=== PATIENT | male | born 1975 | race Caucasian/White ===

== ENCOUNTER 2022-06-27 09:11 | Day surgery (SDC) | payer OTHER ==
[2022-06-27] MEDS ORDERED: CEFAZOLIN SODIUM 1 GM/VIAL ONE (09:45)
[2022-06-27] MEDS ORDERED: Ringers Lactate 1,000 ML IV ONE (09:45)
[2022-06-27] MEDS ORDERED: propofoL 200 MG/20 ML VIAL IV ONE (10:03)
[2022-06-27] MEDS ORDERED: MIDAZOLAM HCL 2 MG/2 ML INJ ONE (10:03)
[2022-06-27] MEDS ORDERED: FENTANYL CITR 100 MCG/2 ML ONE (10:03)
[2022-06-27] MEDS ORDERED: LIDOCAINE 2% MPF 5 ML VIAL ONE (10:04)
[2022-06-27] MEDS ORDERED: ONDANSETRON 4 MG/2 ML VIAL ONE (10:04)
[2022-06-27] MEDS ORDERED: HYDROMORPHONE HCL 1 MG/ML INJ ONE (11:51)
[2022-06-27 11:55] VITALS: O2SAT 98
[2022-06-27] MEDS ORDERED: HYDROCODONE/APAP 10/325 TAB ONE (12:35)
[2022-06-27 12:43] VITALS: BP 102/88; TEMP 97.2
--- NOTE | 2022-06-27 16:16 | OP ---
Surgeon: Fran Garcia MD Preoperative Diagnosis: Extensor pollicis longus laceration of the left thumb. Postoperative Diagnosis: Extensor pollicis longus laceration of the left thumb. Procedure Performed: Debridement of skin, subcutaneous tissue, simple closure of 2 cm wound, extenso r pollicis longus repair and splint. Anesthesia: General. Description Of Procedure: After satisfactory induction of general anesthesia, left hand was prepped with Betadine scrub, Betadine paint, dry sterile drapes applied in usual manner. The arm was elevate d and exsanguinated with an Esmarch. Tourniquet was inflated to 250 mmHg. Hand was placed on the ro ll lock table. Skin and subcutaneous tissues were debrided with a scalpel about 2 mm and proximal ex tensions were made, dissected out and lacerated extensor tendon was identified and then jet lavaged, irrigated with about 2 L of dilute Betadine solution. Patient underwent a tendinous repair with a fi ngertrap stitch of 4-0 Prolene clear followed by epitendinous 5-0 Prolene clear. Tourniquet was rele ased and electrocautery was used for hemostasis. Skin was closed with 4-0 Prolene vertical mattress simple sutures in half buried mattress. TR/MODL Voice ID: [id number] Report ID: [id number]
--- NOTE | 2022-06-28 03:04 | HP ---
Date of Admission: 06/27/2022 History Of Present Illness: 47-year-old white male, right-hand dominant, who cut his left thumb ____ history of high blood pressure and had previous surgery. Smokes half pack a day. Does not dr ink. Allergies: NO ALLERGIES. Medications: No medications. Physical Examination: Vital Signs: He is 6 feet 5 inches, 220 pounds. Extremities: He has transverse laceration over the proximal phalanx of the left thumb and extended D IP joint. Assessment: Laceration of the extensor pollicis longus. Plan: GH/MODL Voice ID: [id number]
== END 2022-06-27 13:07 | disposition home or self-care (01) ==
LOC: OR 09:11 → EDBD 10:30 → OR 13:07
PROVIDERS: ATTEND Specialist
PROC: 0JDK0ZZ Extraction of Left Hand Subcutaneous Tissue and Fascia, Open Approach (ICD-10-PCS; 2022-06-27)
PROC: 0LQ80ZZ Repair Left Hand Tendon, Open Approach (ICD-10-PCS; principal; 2022-06-27 10:30)
DX: S61.012A Laceration without foreign body of left thumb without damage to nail, initial encounter (principal)
CPT/HCPCS: 26418; 11042; J2704; J2001; J2250; J3010; J1170; J2405; J7120; J0690